=== PATIENT | male | born 1950 | race Caucasian/White ===

== ENCOUNTER 2023-02-01 17:09 | Outpatient (CLI) | payer MEDICARE, BC, SELFPAY ==
[2023-02-01 16:50] LABS: CREATININE 0.8 mg/dL (0.70-1.30); Estimated GFR 94.62 (mL/min/1.73m2)
[2023-02-02 10:33] LABS: Lyme Ab w Rflx to Lyme Confirm Negative (Negative)
[2023-02-03 20:14] LABS: Anaplasma phagocytophilum Negative (Negative); B. miyamotoi PCR Negative (Negative); Babesia divergens/MO-1 Negative (Negative); Babesia duncani Negative (Negative); Babesia microti Negative (Negative); Ehrlichia chaffeensis Negative (Negative); Ehrlichia ewingii/canis Negative (Negative); Ehrlichia muris eauclairensis Negative (Negative)
== END 2023-02-01 17:10 | disposition home or self-care (01) ==
LOC: LBO 17:10
PROVIDERS: PCP Family Medicine; Visit Provider Otolaryngology
DX: H91.8X3 Other specified hearing loss, bilateral (principal)
CPT/HCPCS: 36415; 87798; 82565; 86618

== ENCOUNTER → 2023-03-01 00:36 | Outpatient (CLI) | payer MEDICARE, BC, SELFPAY ==
--- NOTE | 2023-03-01 08:15 | DI.MRI_ITS ---
Exam(s) MR IAC BRAIN WO/W EXAM: MR IAC BRAIN WO/W CLINICAL HISTORY: left drop in speech discrimination,ASYMMETRIC HEARING LOSS,H91.8X3. TECHNIQUE: Multiplanar multisequence MRI of the brain and internal auditory canals was performed. CONTRAST MATERIAL: IV Contrast: 17 mL of Magnevist contrast administered. COMPARISON: No exams were available for comparison FINDINGS: VENTRICLES AND EXTRA AXIAL SPACES: Normal in size and morphology for the patient's age. HEMORRHAGE: None. CEREBRAL PARENCHYMA: No focus of restricted diffusion to suggest acute infarct. No space-occupying le shaka identified. Scattered high signal white matter foci consistent with changes of chronic microvas cular ischemia. MIDLINE SHIFT: None. BRAINSTEM/CEREBELLUM: Normal. CALVARIUM: Normal. ENHANCEMENT: No suspicious enhancement identified. VISUALIZED PARANASAL SINUSES/MASTOIDS: Clear mucous retention at the floors of the maxillary sinuses. ORBITS: Unremarkable. IAC/CP ANGLE: The internal auditory canals are within normal limits. The cerebellar pontine angles ar e unremarkable. No enhancing lesions are seen. Visualized portions of the cranial nerves appear withi n normal limits. Ossicles and semi circular canals appear normal. IMPRESSION: Unremarkable MRI of the brain and internal auditory canals. DATA REPOSITORY:
[2023-03-01] MEDS: Normal Saline Flush 10 ML SYR IVP (13:45)
[2023-03-01] MEDS: Gadoterate meglumine 20 ML SYRINGE 18 ML IVP (13:46)
== END ==
PROVIDERS: PCP Family Medicine; Visit Provider Otolaryngology
DX: H91.8X3 Other specified hearing loss, bilateral (principal)
CPT/HCPCS: 70553